=== PATIENT | male | born 1940 | race Caucasian/White ===

== ENCOUNTER 2018-03-02 18:21 | Inpatient (IN) | payer MEDICARE ==
[2018-03-02 18:51] LABS: #Eosinphils 0.5 thou/uL (0.0-0.7); #Lymphocytes 2.5 thou/uL (1.20-3.40); #Neutrophils 5.9 thou/uL (1.40-6.50); %Basophils 0.4 % (0.0-1.0); %Eosinophils 5.2 % (0.0-10.0); %Lymphocytes 25.3 % (21.0-51.0); %Monocytes 9.7 % (0.0-10.0); %Neutrophils 59.4 % (42.0-75.0); Hemoglobin 10.9 g/dL (14.0-18.0); Mean Corpuscular HGB CONC 35.1 g/dL (32.0-36.0); Mean Corpuscular Hemoglobin 30.1 pg (27.0-31.0); Mean Corpuscular Volume 85.9 fL (78.0-98.0); Mean Platelet Volume 6.2 fL (7.4-10.4); Platelet Count 241 thou/uL (130-400); RBC Distribution Width 12.6 % (11.5-14.5); Red Blood Cell (RBC) Count 3.62 mill/uL (4.70-6.10); White Blood Cell (WBC) Count 9.9 thou/uL (4.8-10.8)
[2018-03-02 19:04] LABS: ALT (SGPT) 7 U/L (8-55); AST (SGOT) 13 U/L (5-34); Albumin 3.5 g/dL (3.4-4.8); Alkaline Phosphatase 77 U/L (40-150); Anion Gap 14 mmol/L (10-20); BUN (Urea Nitrogen) 45 mg/dL (8.4-25.7); Bilirubin, Total 0.6 mg/dL (0.2-1.2); Calc. Creatinine Clearance 0 mL/min (70-130); Calcium 8.6 mg/dL (7.8-10.44); Carbon Dioxide 24 mmol/L (23-31); Chloride 98 mmol/L (98-107); Estimated GFR-MDRD 25; Globulin 3.3 g/dL (2.4-3.5); Glucose 113 mg/dL (83-110); Protein, Total 6.8 g/dL (5.8-8.1); Sodium 131 mmol/L (136-145)
--- NOTE | 2018-03-02 19:26 | RAD ---
PORTABLE AP CHEST X-RAY 03/02/18 HISTORY: Fever. COMPARISON: 12/25/12. FINDINGS: The pacing device overlies the lower mediastinum on the medial left chest. Postsurgical changes relat ed to median sternotomy are again present. The cardiac silhouette is magnified by projection but is s table in size. the pulmonary vasculature is within normal limits. There is mild atelectasis present a t each lung base. Lungs are otherwise clear. There has been no interval change from prior exam. IMPRESSION: No acute cardiopulmonary process. POS: SHAHANA
--- NOTE | 2018-03-02 19:30 | RAD ---
THREE VIEWS LEFT FOOT: 03/02/18 HISTORY: Osteomyelitis. Patient had recent surgery to left foot. FINDINGS: There are postsurgical changes related to excision of the distal aspect of the left fifth metatarsal as well as the proximal aspect of the proximal phalanx of the left small toe. There is subcutaneous s oft tissue swelling seen at the base of the small toe with subcutaneous gas seen in this region. I am unsure if this is related to postsurgical changes or whether the gas is secondary to gas forming org anism and infection. No osseous destruction is seen. 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 No fracture or dislocation is appreciated. Vascular calcifications are seen. IMPRESSION: Postsurgical changes of the left fifth metatarsal and proximal phalanx left small toe with subcutaneo us soft tissue swelling and subcutaneous emphysema. Findings may be related to recent postoperative c hanges, but gas forming organism and infection in the region of the soft tissues at this location cou ld be not excluded. No osseous destruction is seen. If there is concern for osteomyelitis, MRI would be the better study of choice for further evaluation. POS: ANGIE
[2018-03-02] MEDS ORDERED: Piperacillin/Tazobactam 4.5 GM VIAL ONE (19:38)
[2018-03-02] MEDS ORDERED: Sodium Chloride 0.9% 1,000 ML IV SCH (21:58)
[2018-03-02 22:25] VITALS: BMI 28.4
[2018-03-03] MEDS ORDERED: Ondansetron HCl/PF 4 MG/2 ML Vial IVP PRN (00:43)
[2018-03-03] MEDS ORDERED: HYDROcodone/Acetaminophen 5/325 mg Tablet PO PRN (00:43)
[2018-03-03] MEDS ORDERED: Dextrose 5% in Water 1,000 ML IV PRN (00:43)
[2018-03-03] MEDS ORDERED: HumaLOG 300 UNITS/3 ML VIAL SC PRN (00:43)
[2018-03-03] MEDS ORDERED: Acetaminophen 650 MG Suppository PR PRN (00:43)
[2018-03-03] MEDS ORDERED: Acetaminophen 325 MG TAB PO PRN (00:43)
[2018-03-03] MEDS ORDERED: Dextrose 50% Abboject 50 ML SYRINGE SLOW IVP PRN (00:43)
[2018-03-03] MEDS ORDERED: Ondansetron ODT 4 MG TAB PO PRN (00:43)
--- NOTE | 2018-03-03 01:59 | HP ---
DATE OF ADMISSION: 03/02/2018. TIME OF INITIAL SERVICE: 2230 hours. CHIEF COMPLAINT: Fever, altered mental status. HISTORY OF PRESENT ILLNESS: Mr. Ferrer is a 77-year-old white male with a history of hypertension, d iabetes, coronary artery disease, and abnormality of his left fifth metatarsal head, who underwent a bone biopsy for the same last week. He has been on prophylactic Keflex since then for a 10-day perio d post biopsy, and today was more lethargic than normal, not acting like himself, and had fever to 10 0.7. EMS was called. He was brought to the Emergency Department here for evaluation, this is despit e family multiple times requested to be taken to [facility] where he gets all of his care. On arrival here, blood counts were normal. CBC showed a white count of 2.53; last we have on file he re in 07/2017 was 1.47. Electrolytes were fairly normal except for sodium of 131 and we were called for admission. Blood pressures have been normal and no fevers here. The patient was disoriented when I first saw him. He is oriented to his recent medical history, but does not know where he is at present. Does not know what year it is. The remainder of the history was taken from the chart. PAST MEDICAL HISTORY: 1. Hypertension, essential. 2. Diabetes mellitus type 2, insulin dependent. 3. Coronary artery disease, no evidence of angina, status post CABG in the past. 4. Osteomyelitis, possibly of the left fifth metatarsal head. PAST SURGICAL HISTORY: Includes coronary artery bypass grafting, times unknown number of vessels; le ft foot biopsy as above. HOME MEDICATIONS: 1. Fluoxetine 40 mg p.o. daily. 2. Gabapentin 300 mg p.o. q.a.m. and 600 mg p.o. at bedtime. 3. Keflex 500 mg p.o. t.i.d. for a total of 10 days. He is about [facility] through that. 4. Lasix 40 mg daily. 5. Insulin 70/30, 20 units subcu b.i.d. 6. Omeprazole 20 mg daily. 7. Pravachol 20 mg p.o. at bedtime. 8. Flomax 0.4 mg p.o. daily. 9. Phenergan 25 mg per rectum as needed for nausea unresponsive to Zofran. ALLERGIES: SULFA, reaction is unknown. FAMILY HISTORY: Unknown. There is no known history of clotting or bleeding disorders. No known imm une dysfunction. SOCIAL HISTORY: He lives alone, has caregivers 10-12 hours per day. [facility] no [facility]. REVIEW OF SYSTEMS: Attempted. The patient denied any other problems, but was also disoriented. PHYSICAL EXAMINATION: VITAL SIGNS: Temperature 98.6, pulse 87, blood pressure is 97/52, respiratory rate 16, satting 93% o n room air. GENERAL: He is awake and alert. He is oriented to person and to recent medical history. He thinks this is [employer] right now; thinks it is 2009, but "all the years are the same." HEENT: Normocephalic, atraumatic. Pupils equal, round, and reactive to light bilaterally. Mucous m embranes are moist. No visible lesions. No thrush. NECK: Supple. There is no lymphadenopathy, no JVD, no thyromegaly. He has normal carotid upstroke. I do not appreciate any bruit. LUNGS: Clear anteriorly with good air movement. Symmetrical chest excursion. No prolonged expirato ry phase. No wheezing, no rales, no rhonchi. CARDIOVASCULAR: He has a normal S1 and S2. No S3 or S4. A faint 2/6 systolic ejection murmur heard at the right upper sternal border. He has underlying regular rhythm with occasionally missed beats. ABDOMEN: Soft, it is nontender. He has got good bowel sounds in all four quadrants. There is no re bound, rigidity, or guarding. I cannot palpate hepatosplenomegaly. EXTREMITIES: No cyanosis, no clubbing. He has got edema of the left foot to the level of the ankle, approximately 1+. He has trace pedal edema on the right. SKIN: Warm, moist, and well perfused. He has no rashes. He has a healing incisional wound present in the left lateral distal foot. There is no erythema, no fluctuance, and no drainage. NEUROLOGIC: Cranial nerves II-XII are grossly intact. There are no focal deficits. Decreased sensa tion to both feet to about the level of mid tibia. MUSCULOSKELETAL: Normal to inspection. Large joints appeared normal. There is no evidence of infla mmation or palpable effusions. LABORATORY DATA: Sodium 130, potassium 5, chloride 98, bicarbonate 24, BUN 45, creatinine 2.53, and glucose of 113. Calcium was normal. Last creatinine we have is 1.47 on 07/18/2017. Liver function is completely within normal limits. CBC showed a white count of 9.9, hemoglobin is 10.9, hematocrit is 31.1, and platelet count is 214,00 0. We have a chest x-ray that shows sternotomy wires in place, but no acute cardiopulmonary process and x-ray of the left foot showed postsurgical changes of left fifth metatarsal and proximal phalanx of the left fifth toe, some soft tissue swelling, and subcutaneous emphysema. No osseous destruction was seen. ASSESSMENT AND PLAN: 1. Possible osteomyelitis of the left foot. The patient had a bone biopsy done last week. There ar e no x-ray changes, but x-ray changes are late finding. The patient met systemic inflammatory respon se syndrome criteria with his fever, low blood pressure, organ dysfunction, but not definite bacteria l infection. The patient has been accepted to inpatient on telemetry. We will monitor him tonight. The family is requesting transfer to [facility]. We will look into this in the morning. In meantime, we will treat him with vancomycin and cefepime for possible infection while we will get [facility] information. Watch his vital signs and repeat labs in the morning. 2. Acute kidney injury. Creatinine is up from 1.4 to 2.5 in the last 7 months. He has elevated BUN , so it could be prerenal. He got 3 liters of fluid total and we will continue 75 mL an hour of norm al saline. Watch for signs of heart failure. 3. Second-degree AV block. The patient has occasional dropped beats. It looks to be a Mobitz type 2. Unknown if this is new or not. We will have Cardiology comment on this in the morning since I milligan ve access to records of both hospitals. 4. Hypertension. We will hold on any medications for now, given his blood pressure is borderline. 5. Diabetes mellitus type 2. We will continue his insulin 70/30 and sliding scale insulin for corre ction. 6. Coronary artery disease. No current angina.
[2018-03-03] MEDS ORDERED: Cefepime 1 GM in Sodium Chloride 0.9% 100 ML IVPB SCH (02:00)
[2018-03-03] MEDS: Sodium Chloride 0.9% 1,000 ML IV SCH ×2 (02:34→09:02)
[2018-03-03 03:49] LABS: Bilirubin Negative (Negative); Blood, Urine Negative (Negative); Clarity CLEAR (Clear); Glucose, Urine (Dipstick) Negative (Negative); Leukocyte Small (Negative); Nitrite Negative (Negative); Protein, Urine (Dipstick) Negative (Neg-Trace); Specific Gravity, Urine 1.015 (1.002-1.036); Urobilinogen 0.2 mg/dL (0.2-1.0); pH, Urine 5.5 (5.0-9.0)
[2018-03-03 03:52] LABS: Bacteria/HPF None Seen HPF (None Seen); Hyaline Casts/LPF 4-6 HYALINE CAST LPF (0-3 Hyaline); Pathc Cast-AUWi Flag 0.87 (0-2.49); Squamous Epithelial 0-3 HPF (0-3); WBC/HPF 21-50 HPF (0-3)
[2018-03-03 05:17] LABS: #Eosinphils 0.2 thou/uL (0.0-0.7); #Monocytes 0.8 thou/uL (0.11-0.59); #Neutrophils 9.5 thou/uL (1.40-6.50); %Basophils 0.3 % (0.0-1.0); %Eosinophils 2.1 % (0.0-10.0); %Lymphocytes 8.2 % (21.0-51.0); %Monocytes 7.3 % (0.0-10.0); %Neutrophils 82.1 % (42.0-75.0); Hemoglobin 10.6 g/dL (14.0-18.0); Mean Corpuscular HGB CONC 35.2 g/dL (32.0-36.0); Mean Corpuscular Volume 85.2 fL (78.0-98.0); Mean Platelet Volume 6.3 fL (7.4-10.4); Platelet Count 223 thou/uL (130-400); RBC Distribution Width 12.5 % (11.5-14.5); Red Blood Cell (RBC) Count 3.55 mill/uL (4.70-6.10); White Blood Cell (WBC) Count 11.5 thou/uL (4.8-10.8)
[2018-03-03 05:27] LABS: Vancomycin, Random 10.2 ug/mL (See Comment)
[2018-03-03 05:32] LABS: Anion Gap 16 mmol/L (10-20); BUN (Urea Nitrogen) 46 mg/dL (8.4-25.7); Calc. Creatinine Clearance 37 mL/min (70-130); Calcium 8.5 mg/dL (7.8-10.44); Carbon Dioxide 21 mmol/L (23-31); Chloride 101 mmol/L (98-107); Estimated GFR-MDRD 30; Glucose 203 mg/dL (83-110); Potassium 5.3 mmol/L (3.5-5.1); Sodium 133 mmol/L (136-145)
[2018-03-03] MEDS ORDERED: Heparin 5,000 UNITS/ML VIAL SC SCH ×3 (09:00→21:00)
[2018-03-03] MEDS ORDERED: Tamsulosin HCl 0.4 MG CAP PO SCH (09:00)
[2018-03-03] MEDS ORDERED: Gabapentin 300 MG CAP PO SCH ×2 (09:00→21:00)
[2018-03-03] MEDS ORDERED: FLUoxetine HCl 20 MG CAP PO SCH (09:00)
[2018-03-03] MEDS ORDERED: Famotidine 20 MG TAB PO SCH (09:00)
[2018-03-03] MEDS ORDERED: Insulin NPH/Reg Insulin Hm 300 UNITS/3 ML VIAL SC SCH (09:00)
[2018-03-03 12:26] VITALS: BP 108/51; TEMP 98.4
--- NOTE | 2018-03-03 13:53 | PDOC.PN ---
- Subjective Encounter Start Date: 03/03/18 Encounter Start Time: 11:00 Subjective: is awake and responding well to verbal questions -: no chest pain or palp -: at bedside - Objective Resuscitation Status: Resuscitation Status FULL:Full Resuscitation MAR Reviewed: Yes Vital Signs & Weight: Vital Signs (12 hours) Temp Pulse Resp BP Pulse Ox 03/03/18 12:25 98.4 F 60 16 108/51 L 100 03/03/18 07:09 98.2 F 72 16 104/51 L 100 Weight Weight 198 lb I&O: 03/02/18 03/03/18 03/04/18 06:59 06:59 06:59 Intake Total 900 Output Total 2300 15 Balance -1400 -15 Result Diagrams: 03/03/18 04:53 03/03/18 04:53 Additional Labs: Accuchecks 03/03/18 03/03/18 10:42 06:03 POC Glucose 181 H 228 H Phys Exam - Physical Examination HEENT: PERRLA, moist MMs Neck: no JVD, supple Respiratory: no wheezing, no rales Cardiovascular: RRR, no significant murmur Gastrointestinal: soft, non-tender, positive bowel sounds Musculoskeletal: pulses present left foot in surgical boot Neurological: non-focal, moves all 4 limbs Psychiatric: normal affect, A&O x 3 Dx/Plan (1) Sepsis Code(s): A41.9 - SEPSIS, UNSPECIFIED ORGANISM Status: Acute Qualifiers: Sepsis type: sepsis due to unspecified organism Qualified Code(s): A41.9 - Sepsis, unspecified organism (2) Acute encephalopathy Code(s): G93.40 - ENCEPHALOPATHY, UNSPECIFIED Status: Resolved (3) HTN (hypertension) Code(s): I10 - ESSENTIAL (PRIMARY) HYPERTENSION Status: Chronic Qualifiers: Hypertension type: essential hypertension Qualified Code(s): I10 - Essential (primary) hypertension (4) DM type 2 (diabetes mellitus, type 2) Status: Chronic Qualifiers: Diabetes mellitus custodial insulin use: with custodial use Diabetes mellitus complication status: with unspecified complications Qualified Code(s) : E11.8 - Type 2 diabetes mellitus with unspecified complications; Z79.4 - extermination supervisor (current) use of insulin (5) Dyslipidemia Code(s): E78.5 - HYPERLIPIDEMIA, UNSPECIFIED Status: Chronic (6) BPH (benign prostatic hyperplasia) Code(s): N40.0 - BENIGN PROSTATIC HYPERPLASIA WITHOUT LOWER URINRY TRACT SYMP Status: Chronic Qualifiers: Lower urinary tract symptom presence: symptoms present (7) CAD (coronary artery disease) Code(s): I25.10 - ATHSCL HEART DISEASE OF [place] CORONARY ARTERY W/O ANG PCTRS Status: Chronic Qualifiers: Coronary Disease-Associated Artery/Lesion type: bypass graft [place] vs. transplanted heart: [place] heart Associated angina: without angina Qualified Code(s): I25.810 - Atherosclerosis of coronary artery bypass graft(s) without angina pectoris - Plan patient and want to be transfered to [facility] where they have reci -: -eved all their care so far, transfer center has arranged the same and will -: be shortly dc -: Has chronic bifascicular block with rates dipping down to 50's, have given -: full updates to accepting physician at [facility] * . had recieved a dose of vanc and zosyn in ER for suspected left 5th toe osteo, was on cefepime on telemetry.
[2018-03-03] MEDS ORDERED: Pravastatin Sodium 20 MG TAB PO SCH (21:00)
--- NOTE | 2018-03-03 21:43 | DIS ---
DATE OF ADMISSION: 03/03/2018 DATE OF DISCHARGE: 03/03/2018 DISCHARGE DISPOSITION: To [facility] in [place]. PRIMARY DISCHARGE DIAGNOSES: Sepsis, likely left fifth toe osteomyelitis, acute encephalopathy, reso lved. SECONDARY DISCHARGE DIAGNOSES: Hypertension, diabetes mellitus type 2, coronary artery disease, dysl ipidemia, benign prostatic hypertrophy. PROCEDURES DONE DURING HOSPITALIZATION: The patient had a chest x-ray done, which showed no acute ca rdiopulmonary process. Left foot three view x-ray done showed post-surgical changes in the left fift h metatarsal and proximal phalanx, left small toe with subcutaneous soft tissue swelling and subcutan eous emphysema. Findings may be related to recent postop changes, but gas forming organism and infec tion could not be ruled out. No osseous destruction was seen. Blood cultures x2 preliminary results have shown no growth. Urine culture preliminary results, no growth. H&H 10 and 30, platelet count 223, white count of 11 with 82% neutrophils. BUN 45, creatinine 2.5. Sodium 131, potassium 5.0. Se rum bicarbonate 24, albumin is 3.5. Liver enzymes are within normal limits. Lactic acid was 0.7. U A showed small leukoesterase, with 21-50 WBCs and no bacteria seen. DISCHARGE MEDICATIONS: Lasix 40 mg p.o. daily, fluoxetine 40 mg p.o. daily, gabapentin 600 mg p.o. a t bedtime and 300 mg p.o. daily, [place] p.r.n. for pain, 70/30 NPH insulin 20 units subcu twice daily, multivitamin 1 capsule daily, omeprazole 20 mg daily, Pravachol 20 mg p.o. at bedtime, Flomax 0.4 mg p.o. daily, cefepime 1 gram IV daily, which was initiated here. ALLERGIES: No known drug allergies. BRIEF COURSE DURING HOSPITALIZATION: The patient initially was brought to emergency room after he de veloped a fever of 100.7 and not acting like himself at home. He was more lethargic. He was on Kefl ex post-biopsy of left fifth metatarsal head. This was done last week at [facility]. The patie nt in fact has had all his workup done at [facility] and all his caregivers are at [facility]. The had mentioned all of this to EMS despite which brought the patient here. His encephalopathy completely resolved on arrival here. He was essentially admitted to telemetry. He wa s given an initial vancomycin and Zosyn in the ER later was placed on cefepime on telemetry floor. T ransferred to [facility] has been accomplished now and he will be shortly [facility]. I have given complete updates to the accepting M.D. at [facility]. The patient likely has chronic bifascicular block and has been at times dipping down into 50s with this heart rate after gi ving this update to the accepting M.D. at [facility]. Per family's choice, he is being discharged back to [facility] in [place]. Please see a [id number] documenta tion for the day [facility].
--- NOTE | 2018-03-06 13:33 | EKG ---
Test Reason : AMS Blood Pressure : / mmHG Vent. Rate : 069 BPM Atrial Rate : 083 BPM P-R Int : 000 ms QRS Dur : 132 ms QT Int : 416 ms P-R-T Axes : 102 -57 064 degrees QTc Int : 445 ms Sinus rhythm with 2nd degree A-V block (Mobitz I) Right bundle branch block Left anterior fascicular block Bifascicular block Abnormal ECG Confirmed by LETI SANCHEZ, OSCAR ([id number]), graphic editor YOSSI LANGSTON ([id number]) on 03/06/2018 1:32:47 PM Referred By: FAVIOLA LANDEROS Confirmed By:OSCAR LANDEROS MD
== END 2018-03-03 14:23 | disposition short-term general hospital (02) | DRG 871 ==
LOC: ERS 18:21 → 2NO 21:48
PROVIDERS: ADMIT Family Medicine; ATTEND Family Medicine
DX: A41.9 Sepsis, unspecified organism (principal); G93.40 Encephalopathy, unspecified; M86.8X7 Other osteomyelitis, ankle and foot; N17.9 Acute kidney failure, unspecified; I10 Essential (primary) hypertension; E11.9 Type 2 diabetes mellitus without complications; I25.10 Atherosclerotic heart disease of native coronary artery without angina pectoris; E78.5 Hyperlipidemia, unspecified; N40.0 Benign prostatic hyperplasia without lower urinary tract symptoms; Z79.4 Long term (current) use of insulin; Z95.1 Presence of aortocoronary bypass graft; I44.1 Atrioventricular block, second degree
CPT/HCPCS: 36415; 36416; 71045; 80048; 80053; 80202; 81001; 83605; 85025; 87040; 87086; 93005; 96365; 96368; A4216; J0692; J1644; J2543; J3370; J7050